=== PATIENT | female | born 1980 | race Caucasian/White ===

== ENCOUNTER 2025-05-14 09:01 | Outpatient (AMB) | payer OTHER, SELFPAY ==
--- NOTE | 2025-05-14 09:09 | A.OFFVIS_ITS ---
VS Expanded 05/14/25 09:10 05/14/25 10:15 Height 5 ft 2.5 in 5 ft 2.5 in Weight 205 lb 7.533 oz 205 lb BMI 37.0 36.9 Intake Visit Reasons: Calculus of galbladder Nutrition Presentation Details: Pt presents for MNT for calculus of gallbladder Pt reports feeling overwhelmed with diets on the web Reports lacking meal routine, always on the go (children in sport events/traveling) [id number] Equation Height: 5 ft 2.5 in Weight: 205 lb Resting Metabolic Rate: 1538.72 Calculated Activity Level: Mild Activity Calories Needed to Maintain Weight: 2115.74 Assessment & Plan Assessment & Plan (1) Calculus of gallbladder: Comment: Pt with BMI 36.9 (05/18) Code(s): K80.20 - Calculus of gallbladder without cholecystitis without obstruction Category: Medical Plan: current wt: 93 kg (05/18 ) est kcal needs as per MSJ: 2100 - 500 = 1600 est protein needs as per 1 g/kg BW: 90 est fluid needs as per 30 ml/kg BW: 2800 Recommended fiber > 12 g /day and gradually increase up to 25-28 g /day or as tolerated Nutrition topics discussed : Reviewed (R), Pt verbalized understanding (V) , not applicable (N/A) R, : Healthy Plate Method Concept: R, V, N/A: Carbohydrates: food sources of carbohydrates, relationship of carbohydrates to blood glucose, fatty liver GI health. Recommended total amount of carbohydrates per meals and snack. Differences between simple carbohydrates and complex carbohydrates R, V, N/A: Lean protein foods including vegan , vegetarian sources of protein. Benefits of protein (including but not limited to healing, nutritional value , benefits in weight loss, glucose control R, : LOW FAT concepts Fats : Source of fats, benefits of fats. Difference be tween saturated and unsaturated fats. Saturated fats and its contribution to inflammation R, V, N/A: Fiber: food sources and role of fiber in the diet (including but not limited to its role as a prebiotic, benefits in constipation, role in IBS , role in glucose control and cholesterol level) R, : Hydration: role of hydration and prevention of dehydration or over hydration. Foods and water content. R, V, N/A: Vitamins and Minerals in foods and supplements R, V, N/A: Interpreting food labels, including serving size, macronutrients, vitamins, minerals, allergens, ingredient list , % daily value Patient Instructions: Choose low sugar beverages (water, fruit/herb infused flavored water) Choose low fat food options (reduce on highly processed meats, fried/prefried food items, amount of fat added to the foods (butter, nut butter, cream, sauces , pastries/cookies ) see low fat meal plan Coding Level of Care Code Nutr Indiv Intake (54729) Diagnoses Calculus of gallbladder K80.20 Time Spent (min) 30
[2025-05-14 09:10] VITALS: BMI 37.0
[2025-05-14 10:15] VITALS: BMI 36.9
== END 2025-05-14 10:02 | disposition home or self-care (01) ==
LOC: HO.ENCR 09:02
PROVIDERS: PCP Internal Medicine; Visit Provider Dietitian, Registered
DX: K80.20 Calculus of gallbladder without cholecystitis without obstruction (principal)

== ENCOUNTER → 2025-05-14 09:01 | Outpatient (BNVA) | payer OTHER, SELFPAY | PROVIDERS: PCP Internal Medicine; Visit Provider Dietitian, Registered | DX: K80.20 Calculus of gallbladder without cholecystitis without obstruction (principal) | CPT/HCPCS: 97802 ==